=== PATIENT | female | born 1975 | race Caucasian/White ===

== ENCOUNTER → 2018-02-14 | Day surgery (SDC) | payer OTHER ==
[~2018-02-14] VITALS: Ht 172.7 cm; Wt 70.3 kg
--- NOTE | 2018-02-14 17:50 | Operative Report ---
Operative/Inv Procedure Report Surgery Date: 02/14/18 Name of Procedure: left ureter (UPJ) stone ESWL, fluoroscopy Pre-Operative Diagnosis: multiple bilat. stones: left colic from UPJ stone (9mm) Post-Operative Diagnosis: same Estimated Blood Loss: scant Surgeon/Rotary Soil Stabilizer: Dalton Crowe MD Anesthesia: moderate sedation Specimens: none Complications: small red compression bruise left dome site Operative/Procedure Note Note: The patient was taken to the operating room and placed on the ESWL table in supine position. Time out was performed, with the patient awake, to confirm identity, procedure, laterality, and other pertinent joseph-operative information. After adequate anesthesia, the patient was positioned so that the left flank was placed over the ESWL table cut-out, and overlying the dome of the shockwave generator. C-arm fluroscopy, as well as renal US was used to locate the stone, and evaluate the left kidney. The stone was visible on fluroloscopy at the mid- left ureter. Renal US confirmed hydronephrosis, with one additional stone seen in the left kidney. The left ureter stone was approximate 9 mm in size, and clearly visible with fluoroscopy. Using fluoroscopy, the position of the ureter stone was optimized for ESWL, using AP, and oblique views of the stone. Subsequently, E.S.W.L. was initiated at low power levels x 200 shocks. After noting the patient's tolerance to the shockwaves, the shock wave lithotripor power level was quickly maximized. At the end of the procedure, the composition of the stone had changed significantly indicating the pulverization of the ureter stone. A total of 3000 shockwaves were delivered to the stone in order to achieve adequate lithotrypsy. All sponge needle and instrument count were correct at the end of the case. The patient tolerated the procedure well, was awakened, and taken to recovery in satisfactory condition via stretcher. The pt will eventually be dischared to home with pain meds, diet orders, and intructions to catch fragments with straining the urine. The patient is to have follow-up renal ultrasound and KUB (after the left renal stone is treated as well). Discharge Disposition: Same Day Admissions CC: Dalton Crowe MD
== END ==
LOC: STS 03:38
DX: N13.2 Hydronephrosis with renal and ureteral calculous obstruction (principal); K58.9 Irritable bowel syndrome, unspecified; Z87.442 Personal history of urinary calculi
CPT/HCPCS: 81025